=== PATIENT | male | born 1950 | race Hispanic/Latino ===

== ENCOUNTER 2022-04-24 23:30 | Inpatient (IN) | payer MEDICARE, MEDICAID ==
[2022-04-25 00:20] LABS: #Eosinphils 0.3 thou/uL (0.0-0.7); #Lymphocytes 3.3 thou/uL (1.20-3.40); #Monocytes 1.1 thou/uL (0.11-0.59); #Neutrophils 9.8 thou/uL (1.40-6.50); %Basophils 0.3 % (0.0-1.0); %Eosinophils 1.9 % (0.0-10.0); %Lymphocytes 22.8 % (21.0-51.0); %Monocytes 7.3 % (0.0-10.0); %Neutrophils 67.7 % (42.0-75.0); Hemoglobin 10.5 g/dL (14.0-18.0); Mean Corpuscular HGB CONC 32.8 g/dL (32.0-36.0); Mean Corpuscular Hemoglobin 33.1 pg (27.0-31.0); Mean Platelet Volume 7.2 fL (7.4-10.4); Platelet Count 412 10x3/uL (130-400); RBC Distribution Width 12.3 % (11.5-14.5); Red Blood Cell (RBC) Count 3.17 mill/uL (4.70-6.10); White Blood Cell (WBC) Count 14.4 10x3/uL (4.8-10.8)
[2022-04-25] MEDS ORDERED: Pantoprazole 40 MG VIAL ONE (00:34)
[2022-04-25 00:43] LABS: ALT (SGPT) 13 U/L (8-55); AST (SGOT) 9 U/L (5-34); Albumin 3.1 g/dL (3.4-4.8); Alkaline Phosphatase 69 U/L (40-110); Anion Gap 14 mmol/L (10-20); BUN (Urea Nitrogen) 37 mg/dL (8.4-25.7); Bilirubin, Total 0.3 mg/dL (0.2-1.2); Calc. Creatinine Clearance 0 mL/min (70-130); Calcium 8.2 mg/dL (7.8-10.44); Carbon Dioxide 24 mmol/L (23-31); Chloride 104 mmol/L (98-107); Estimated GFR 89; Globulin 2.4 g/dL (2.4-3.5); Glucose 148 mg/dL (83-110); INR-International Normal Ratio 1.1; Lipase 24 U/L (8-78); Potassium 3.1 mmol/L (3.5-5.1); Protein, Total 5.5 g/dL (5.8-8.1); Prothrombin Time 14.6 sec (12.0-14.7); Sodium 139 mmol/L (136-145)
[2022-04-25 00:44] LABS: PTT 25.8 sec (22.9-36.1)
[2022-04-25] MEDS ORDERED: Promethazine HCl 25 MG in Sodium Chloride 0.9% 50 ML IVPB SCH (00:45)
[2022-04-25] MEDS ORDERED: Calcium Carbonate 500 MG ChewTAB PO PRN (02:21)
[2022-04-25] MEDS ORDERED: Senokot S 8.6-50 MG TAB PO PRN (02:21)
[2022-04-25] MEDS ORDERED: Lactated Ringer's 1,000 ML IV SCH (02:30)
[2022-04-25 04:16] LABS: SARS-CoV-2 NAA Rapid Test Not Detected (NotDetected)
[2022-04-25 05:02] LABS: #Lymphocytes 1.6 thou/uL (1.20-3.40); #Monocytes 0.8 thou/uL (0.11-0.59); %Basophils 0.2 % (0.0-1.0); %Eosinophils 0.1 % (0.0-10.0); %Lymphocytes 9.8 % (21.0-51.0); Hemoglobin 10.4 g/dL (14.0-18.0); Mean Corpuscular HGB CONC 32.6 g/dL (32.0-36.0); Mean Corpuscular Hemoglobin 32.6 pg (27.0-31.0); Mean Platelet Volume 7.1 fL (7.4-10.4); Platelet Count 401 10x3/uL (130-400); RBC Distribution Width 12.3 % (11.5-14.5); Red Blood Cell (RBC) Count 3.18 mill/uL (4.70-6.10); White Blood Cell (WBC) Count 16.4 10x3/uL (4.8-10.8)
[2022-04-25 05:14] LABS: Lactic Acid 0.8 mmol/L (0.5-2.2)
[2022-04-25 05:37] LABS: ALT (SGPT) 12 U/L (8-55); AST (SGOT) 10 U/L (5-34); Albumin 3.3 g/dL (3.4-4.8); Alkaline Phosphatase 75 U/L (40-110); Anion Gap 11 mmol/L (10-20); BUN (Urea Nitrogen) 38 mg/dL (8.4-25.7); Bilirubin, Total 0.3 mg/dL (0.2-1.2); Calc. Creatinine Clearance 0 mL/min (70-130); Calcium 8.1 mg/dL (7.8-10.44); Carbon Dioxide 26 mmol/L (23-31); Chloride 106 mmol/L (98-107); Estimated GFR 94; Globulin 2.4 g/dL (2.4-3.5); Glucose 126 mg/dL (83-110); Potassium 3.7 mmol/L (3.5-5.1); Protein, Total 5.7 g/dL (5.8-8.1); Sodium 139 mmol/L (136-145)
[2022-04-25] MEDS: Nicotine 21 MG PATCH TD SCH (05:54)
[2022-04-25 06:45] VITALS: BMI 35.7
[2022-04-25] MEDS ORDERED: Pantoprazole 40 MG VIAL IVP SCH (09:00)
[2022-04-25] MEDS ORDERED: Iopamidol-370 76% 500 ML 1 ML ONE (12:23)
[2022-04-25] MEDS: Acetaminophen 325 MG TAB PO PRN (15:17)
[2022-04-25] MEDS ORDERED: Ipratropium/Albuterol 3 ML NEB NEB PRN (16:24)
[2022-04-25] MEDS: Budesonide 0.25 MG/2 ML NEB INH SCH (18:53)
[2022-04-25] MEDS: Pantoprazole 40 MG VIAL IVP SCH (21:49)
[2022-04-26 04:29] LABS: #Eosinphils 0.2 thou/uL (0.0-0.7); #Lymphocytes 2.6 thou/uL (1.20-3.40); #Monocytes 0.9 thou/uL (0.11-0.59); #Neutrophils 9.9 thou/uL (1.40-6.50); %Basophils 0.3 % (0.0-1.0); %Eosinophils 1.3 % (0.0-10.0); %Lymphocytes 18.7 % (21.0-51.0); %Monocytes 6.9 % (0.0-10.0); %Neutrophils 72.8 % (42.0-75.0); Hemoglobin 8.7 g/dL (14.0-18.0); Mean Corpuscular HGB CONC 32.5 g/dL (32.0-36.0); Mean Platelet Volume 7.3 fL (7.4-10.4); Platelet Count 326 10x3/uL (130-400); RBC Distribution Width 12.4 % (11.5-14.5); Red Blood Cell (RBC) Count 2.65 mill/uL (4.70-6.10); White Blood Cell (WBC) Count 13.6 10x3/uL (4.8-10.8)
[2022-04-26 04:44] LABS: Anion Gap 10 mmol/L (10-20); BUN (Urea Nitrogen) 24 mg/dL (8.4-25.7); Calc. Creatinine Clearance 120 mL/min (70-130); Calcium 8.2 mg/dL (7.8-10.44); Carbon Dioxide 26 mmol/L (23-31); Chloride 106 mmol/L (98-107); Estimated GFR 94; Glucose 96 mg/dL (83-110); Potassium 3.5 mmol/L (3.5-5.1); Sodium 138 mmol/L (136-145)
[2022-04-26] MEDS: Nicotine 21 MG PATCH TD SCH (06:03)
[2022-04-26] MEDS ORDERED: Ipratropium/Albuterol 3 ML NEB ONE (07:54)
[2022-04-26] MEDS: Budesonide 0.25 MG/2 ML NEB INH SCH ×2 (07:57→19:46)
[2022-04-26] MEDS ORDERED: Lidocaine 1% PF 5 ML VIAL ONE (08:18)
[2022-04-26] MEDS ORDERED: PROPOFOL 200 MG/20 ML VIAL ONE (08:18)
[2022-04-26] MEDS ORDERED: Promethazine HCl 25 MG/ML VIAL IM PRN (09:01)
[2022-04-26] MEDS ORDERED: Ondansetron HCl/PF 4 MG/2 ML Vial IVP PRN (09:01)
[2022-04-26] MEDS: Pantoprazole 40 MG VIAL IVP SCH ×2 (09:20→20:58)
[2022-04-26] MEDS: Acetaminophen 325 MG TAB PO PRN (09:29)
[2022-04-26] MEDS ORDERED: Melatonin 3 MG TAB PO PRN (21:28)
[2022-04-27 05:56] LABS: #Eosinphils 0.1 thou/uL (0.0-0.7); #Lymphocytes 1.2 thou/uL (1.20-3.40); #Monocytes 0.9 thou/uL (0.11-0.59); #Neutrophils 12.8 thou/uL (1.40-6.50); %Basophils 0.2 % (0.0-1.0); %Eosinophils 0.6 % (0.0-10.0); %Lymphocytes 7.9 % (21.0-51.0); %Monocytes 6.2 % (0.0-10.0); Hemoglobin 8.4 g/dL (14.0-18.0); Mean Corpuscular Hemoglobin 32.5 pg (27.0-31.0); Mean Platelet Volume 7.4 fL (7.4-10.4); Platelet Count 316 10x3/uL (130-400); RBC Distribution Width 12.4 % (11.5-14.5); Red Blood Cell (RBC) Count 2.58 mill/uL (4.70-6.10); White Blood Cell (WBC) Count 15.1 10x3/uL (4.8-10.8)
[2022-04-27 06:10] LABS: Anion Gap 11 mmol/L (10-20); BUN (Urea Nitrogen) 15 mg/dL (8.4-25.7); Calc. Creatinine Clearance 131 mL/min (70-130); Calcium 8.2 mg/dL (7.8-10.44); Carbon Dioxide 26 mmol/L (23-31); Chloride 103 mmol/L (98-107); Estimated GFR 96; Glucose 129 mg/dL (83-110); Potassium 3.8 mmol/L (3.5-5.1); Sodium 136 mmol/L (136-145)
[2022-04-27] MEDS: Nicotine 21 MG PATCH TD SCH (06:14)
[2022-04-27] MEDS: Budesonide 0.25 MG/2 ML NEB INH SCH (07:01)
[2022-04-27] MEDS: Pantoprazole 40 MG VIAL IVP SCH (09:35)
[2022-04-27 12:39] VITALS: TEMP 98.3
== END 2022-04-27 15:35 | disposition home or self-care (01) | DRG 378 ==
LOC: ERS 23:30 → EDBD 23:30 → IMCU/EMU 04-25 05:26
PROVIDERS: ADMIT Student in an Organized Health Care Education/Training Program; ATTEND Internal Medicine
PROC: 0W3P8ZZ Control Bleeding in Gastrointestinal Tract, Via Natural or Artificial Opening Endoscopic (ICD-10-PCS; principal; 2022-04-26)
PROC: 0DB68ZX Excision of Stomach, Via Natural or Artificial Opening Endoscopic, Diagnostic (ICD-10-PCS; 2022-04-26)
DX: K25.4 Chronic or unspecified gastric ulcer with hemorrhage (principal); D62 Acute posthemorrhagic anemia; Z20.822 Contact with and (suspected) exposure to COVID-19; J44.9 Chronic obstructive pulmonary disease, unspecified; I10 Essential (primary) hypertension; F17.210 Nicotine dependence, cigarettes, uncomplicated; Z90.49 Acquired absence of other specified parts of digestive tract; Z82.49 Family history of ischemic heart disease and other diseases of the circulatory system; T39.315A Adverse effect of propionic acid derivatives, initial encounter; K21.9 Gastro-esophageal reflux disease without esophagitis
CPT/HCPCS: 36415; 71045; 74177; 80048; 80053; 83605; 83690; 85025; 85610; 85730; 86850; 86900; 86901; 88305; 88342; 93005; 94640; 96361; 96374; 96376; C9113; J2550; J2704; J7120; J7620; J7626; Q9967; U0002

== ENCOUNTER 2023-02-27 11:44 | Observation (INO) | payer MEDICARE, MEDICAID ==
[2023-02-27] MEDS ORDERED: methylPREDNISolone Sod Succ/PF 125 MG/2 ML VIAL ONE (12:01)
[2023-02-27 12:11] LABS: #Eosinphils 0.1 thou/uL (0.0-0.7); #Monocytes 0.6 thou/uL (0.11-0.59); #Neutrophils 7.9 thou/uL (1.40-6.50); %Basophils 0.2 % (0.0-1.0); %Eosinophils 0.8 % (0.0-10.0); %Lymphocytes 12.7 % (21.0-51.0); %Neutrophils 79.9 % (42.0-75.0); Hematocrit 29.9 % (42.0-52.0); Hemoglobin 9.4 g/dL (14.0-18.0); Mean Corpuscular HGB CONC 31.4 g/dL (32.0-36.0); Mean Corpuscular Hemoglobin 29.7 pg (27.0-31.0); Mean Corpuscular Volume 94.3 fl (78.0-98.0); Platelet Count 368 10x3/uL (130-400); RBC Distribution Width 15.1 % (11.5-14.5); Red Blood Cell (RBC) Count 3.17 mill/uL (4.70-6.10); White Blood Cell (WBC) Count 9.9 10x3/uL (4.8-10.8)
[2023-02-27] MEDS ORDERED: Ipratropium/Albuterol 3 ML NEB ONE (12:13)
[2023-02-27 12:41] LABS: ALT (SGPT) 19 U/L (8-55); AST (SGOT) 19 U/L (5-34); Albumin 3.2 g/dL (3.4-4.8); Alkaline Phosphatase 101 U/L (40-110); Anion Gap 14 mmol/L (10-20); BUN (Urea Nitrogen) 15 mg/dL (8.4-25.7); Bilirubin, Total 0.2 mg/dL (0.2-1.2); Calc. Creatinine Clearance 0 mL/min (70-130); Calcium 7.8 mg/dL (7.8-10.44); Carbon Dioxide 27 mmol/L (23-31); Chloride 99 mmol/L (98-107); Estimated GFR 67; Globulin 3.2 g/dL (2.4-3.5); Glucose 147 mg/dL (83-110); Potassium 4.5 mmol/L (3.5-5.1); Protein, Total 6.4 g/dL (5.8-8.1); Sodium 135 mmol/L (136-145)
[2023-02-27 12:46] LABS: Troponin I 0.248 ng/mL (< 0.028)
[2023-02-27 13:12] LABS: SARS-CoV-2 NAA Rapid Test Not Detected (NotDetected)
[2023-02-27] MEDS ORDERED: Aspirin Chewable 81 MG TAB ONE (14:10)
[2023-02-27] MEDS ORDERED: Oseltamivir 75 MG CAP ONE (14:36)
[2023-02-27] MEDS ORDERED: Acetaminophen 325 MG TAB PO PRN (14:59)
[2023-02-27] MEDS ORDERED: Ondansetron PF 4 MG/2 ML Vial IVP PRN (14:59)
[2023-02-27] MEDS ORDERED: Albuterol 2.5 MG (3 mL) NEB NEB PRN (15:02)
[2023-02-27 15:42] LABS: Troponin I 0.268 ng/mL (< 0.028)
[2023-02-27 17:29] VITALS: BMI 34.4
[2023-02-27] MEDS ORDERED: Nicotine 21 MG PATCH TD SCH (18:00)
[2023-02-27 18:57] LABS: Troponin I 0.207 ng/mL (< 0.028)
[2023-02-27] MEDS ORDERED: methylPREDNISolone Sod Succ 40 MG VIAL ONE (19:16)
[2023-02-27] MEDS: methylPREDNISolone Sod Succ 40 MG VIAL IVP SCH ×2 (19:22→22:29)
[2023-02-27] MEDS: Ipratropium/Albuterol 3 ML NEB NEB SCH ×2 (22:26→23:03)
[2023-02-27] MEDS: Oseltamivir 75 MG CAP PO SCH (22:29)
[2023-02-28] MEDS: Ipratropium/Albuterol 3 ML NEB NEB SCH ×4 (03:37→14:40)
[2023-02-28] MEDS: methylPREDNISolone Sod Succ 40 MG VIAL IVP SCH ×2 (05:08→14:16)
[2023-02-28 06:18] LABS: #Monocytes 0.3 thou/uL (0.11-0.59); #Neutrophils 6.1 thou/uL (1.40-6.50); %Lymphocytes 8.8 % (21.0-51.0); %Monocytes 4.8 % (0.0-10.0); %Neutrophils 86.1 % (42.0-75.0); Hematocrit 30.8 % (42.0-52.0); Hemoglobin 9.6 g/dL (14.0-18.0); Mean Corpuscular HGB CONC 31.2 g/dL (32.0-36.0); Mean Corpuscular Hemoglobin 28.9 pg (27.0-31.0); Mean Corpuscular Volume 92.8 fl (78.0-98.0); Mean Platelet Volume 9.4 fL (7.4-10.4); Platelet Count 388 10x3/uL (130-400); Red Blood Cell (RBC) Count 3.32 mill/uL (4.70-6.10)
[2023-02-28 06:58] LABS: Anion Gap 13 mmol/L (10-20); BUN (Urea Nitrogen) 15 mg/dL (8.4-25.7); Calc. Creatinine Clearance 89 mL/min (70-130); Calcium 8.3 mg/dL (7.8-10.44); Carbon Dioxide 26 mmol/L (23-31); Chloride 100 mmol/L (98-107); Estimated GFR 72; Glucose 187 mg/dL (83-110); Potassium 4.1 mmol/L (3.5-5.1); Sodium 135 mmol/L (136-145)
[2023-02-28] MEDS ORDERED: Amlodipine 5 MG TAB PO SCH (09:00)
[2023-02-28] MEDS: Oseltamivir 75 MG CAP PO SCH (10:42)
[2023-02-28 12:01] VITALS: BP 112/53; TEMP 97.5
== END 2023-02-28 14:40 | disposition home or self-care (01) ==
LOC: ERS 11:44 → ERHOLD 14:32 → 2SW 20:14
PROVIDERS: ADMIT Hospitalist; ATTEND Physician Assistant Medical
DX: J44.9 Chronic obstructive pulmonary disease, unspecified (principal); J10.1 Influenza due to other identified influenza virus with other respiratory manifestations; I10 Essential (primary) hypertension; I25.10 Atherosclerotic heart disease of native coronary artery without angina pectoris; F17.210 Nicotine dependence, cigarettes, uncomplicated; E66.9 Obesity, unspecified; Z95.5 Presence of coronary angioplasty implant and graft; Z79.51 Long term (current) use of inhaled steroids; Z90.49 Acquired absence of other specified parts of digestive tract; Z68.32 Body mass index [BMI] 32.0-32.9, adult; Z20.822 Contact with and (suspected) exposure to COVID-19; Z79.899 Other long term (current) drug therapy
CPT/HCPCS: 0240U; 71045; 80048; 80053; 83880; 84484 ×2; 85025 ×2; 93005; 94640 ×2; 96374; 96376 ×3; 99285; G0378 ×3; 36415; J2920; J2930; J7620

== ENCOUNTER 2023-04-02 14:57 | Outpatient (CLI) | payer MEDICARE, MEDICAID | END 2023-04-02 14:58 | disposition home or self-care (01) | LOC: CT 14:57 | PROVIDERS: ATTEND Internal Medicine Cardiovascular Disease | DX: I25.10 Atherosclerotic heart disease of native coronary artery without angina pectoris (principal); I73.9 Peripheral vascular disease, unspecified; I77.1 Stricture of artery; N13.30 Unspecified hydronephrosis; K40.90 Unilateral inguinal hernia, without obstruction or gangrene, not specified as recurrent | CPT/HCPCS: 75635; 82565 ==

== ENCOUNTER 2023-08-12 05:47 | Emergency (ER) | payer MEDICARE, MEDICAID ==
[2023-08-12] MEDS ORDERED: Ipratropium/Albuterol 3 ML NEB ONE (06:49)
== END 2023-08-12 07:12 | disposition home or self-care (01) ==
LOC: ERS 05:47
DX: J44.1 Chronic obstructive pulmonary disease with (acute) exacerbation (principal); I10 Essential (primary) hypertension; F17.210 Nicotine dependence, cigarettes, uncomplicated
CPT/HCPCS: J7620

== ENCOUNTER 2023-09-05 15:25 | Inpatient (IN) | payer MEDICARE, MEDICAID ==
[2023-09-05 16:40] LABS: #Basophils 0.04 10x3/uL (0.0-0.2); %Basophils 0.5 % (0.0-1.0); %Eosinophils 2.4 % (0.0-10.0); %Lymphocytes 19.1 % (21.0-51.0); %Monocytes 11.9 % (0.0-10.0); %Neutrophils 65.8 % (42.0-75.0); Hemoglobin 9.1 g/dL (14.0-18.0); Mean Corpuscular HGB CONC 27.6 g/dL (32.0-36.0); Mean Corpuscular Hemoglobin 21.9 pg (27.0-31.0); Mean Corpuscular Volume 79.5 fL (78.0-98.0); Mean Platelet Volume 9.1 fL (7.4-10.4); Platelet Count 363 10x3/uL (130-400); RBC Distribution Width 17.9 % (11.5-14.5); Red Blood Cell (RBC) Count 4.15 mill/uL (4.70-6.10)
[2023-09-05 16:44] LABS: Lipase 36 U/L (8-78)
[2023-09-05 16:57] LABS: Anisocytosis SLIGHT = 6-15 cells HPF (0-5); Basophilic Stippling SLIGHT = 1-2 cells HPF (None Seen); Burr Cells SLIGHT = 2-5 cells HPF (0-1); Hypochromia SLIGHT = 6-15 cells HPF (0-5); Microcytosis SLIGHT = 6-15 cells HPF (0-5); Ovalocytes SLIGHT = 2-5 cells HPF (0-1); Platelet Adequacy Comment Platelets Normal; Polychromasia SLIGHT = 2-3 cells HPF (0-2); Target Cells MODERATE= 6-15 cells HPF (0-1)
[2023-09-05 17:00] LABS: Actual Bicarbonate (HCO3a) 30.3 mEq/L (22-28); CO2 Tension 62.4 mmHg (35.0-45.0); O2 Tension (PaO2), arterial 59.7 mmHg (> 70.0); pH, Arterial 7.304 (7.35-7.45)
[2023-09-05 17:01] LABS: Carboxyhemoglobin (COHb) 1.9 gm% (0.0-3.0); Hematocrit-ABG 29 % (42.0-52.0); Hemoglobin (Hb) 9.7 g/dL (14.0-18.0); Potassium - ABG Lab 4.11 mmol/L (3.70-5.30)
[2023-09-05 17:02] LABS: Analyzer IN Cardio ER; Calcium, Ionized (arterial) 1.14 mmol/L (1.12-1.30); Puncture Site RRA
[2023-09-05 17:25] LABS: Troponin I 0.019 ng/mL (< 0.028)
[2023-09-05 17:51] LABS: ALT (SGPT) 20 U/L (8-55); AST (SGOT) 17 U/L (5-34); Albumin 3.2 g/dL (3.4-4.8); Alkaline Phosphatase 141 U/L (40-110); Anion Gap 12 mmol/L (10-20); BUN (Urea Nitrogen) 19 mg/dL (8.4-25.7); Bilirubin, Total 0.3 mg/dL (0.2-1.2); Calc. Creatinine Clearance 0 mL/min (70-130); Calcium 8.3 mg/dL (7.8-10.44); Carbon Dioxide 29 mmol/L (23-31); Chloride 105 mmol/L (98-107); Estimated GFR 92; Globulin 3.3 g/dL (2.4-3.5); Glucose 104 mg/dL (83-110); Potassium 3.9 mmol/L (3.5-5.1); Protein, Total 6.5 g/dL (5.8-8.1); Sodium 142 mmol/L (136-145)
[2023-09-05] MEDS ORDERED: Ondansetron PF 4 MG/2 ML Vial IVP PRN (19:25)
[2023-09-05] MEDS ORDERED: Albuterol 2.5 MG (3 mL) NEB NEB PRN (19:29)
[2023-09-05 21:05] VITALS: BMI 40.6
[2023-09-05] MEDS: Pantoprazole DR 40 MG TAB PO SCH (22:11)
[2023-09-05] MEDS: Heparin 5,000 UNITS/ML VIAL SC SCH (22:12)
[2023-09-05] MEDS: methylPREDNISolone Sod Succ 40 MG VIAL IVP SCH (22:12)
[2023-09-05] MEDS: Doxycycline 100 MG in Sodium Chloride 0.9% 100 ML IVPB SCH (22:12)
[2023-09-05] MEDS: Ipratropium/Albuterol 3 ML NEB NEB SCH (22:38)
[2023-09-06] MEDS ORDERED: Ipratropium/Albuterol 3 ML NEB ONE (02:54)
[2023-09-06 04:22] LABS: #Basophils Less than 0.03 10x3/uL (0.0-0.2); #Eosinphils Less than 0.03 10x3/uL (0.0-0.7); %Basophils 0.2 % (0.0-1.0); %Lymphocytes 8.8 % (21.0-51.0); %Monocytes 1.9 % (0.0-10.0); %Neutrophils 88.6 % (42.0-75.0); Hematocrit 33.5 % (42.0-52.0); Mean Corpuscular HGB CONC 26.9 g/dL (32.0-36.0); Mean Corpuscular Hemoglobin 21.3 pg (27.0-31.0); Mean Corpuscular Volume 79.2 fL (78.0-98.0); Mean Platelet Volume 9.4 fL (7.4-10.4); Platelet Count 374 10x3/uL (130-400); RBC Distribution Width 17.9 % (11.5-14.5); Red Blood Cell (RBC) Count 4.23 mill/uL (4.70-6.10)
[2023-09-06 04:40] LABS: Anion Gap 12 mmol/L (10-20); BUN (Urea Nitrogen) 17 mg/dL (8.4-25.7); Calc. Creatinine Clearance 125 mL/min (70-130); Calcium 8.4 mg/dL (7.8-10.44); Carbon Dioxide 29 mmol/L (23-31); Chloride 105 mmol/L (98-107); Estimated GFR 91; Glucose 277 mg/dL (83-110); Potassium 4.5 mmol/L (3.5-5.1); Sodium 141 mmol/L (136-145)
[2023-09-06] MEDS: Amlodipine 5 MG TAB PO SCH (10:12)
[2023-09-06] MEDS: Carvedilol 6.25 MG TAB PO SCH (10:12)
[2023-09-06] MEDS: Atorvastatin Calcium 40 MG TAB PO SCH (10:12)
[2023-09-06] MEDS: Clopidogrel Bisulfate 75 MG TAB PO SCH (10:12)
[2023-09-06] MEDS: Lisinopril 20 MG TAB PO SCH (10:13)
[2023-09-06] MEDS: Acetaminophen 325 MG TAB PO PRN (15:17)
[2023-09-06 15:48] VITALS: BP 131/60; TEMP 98.4
== END 2023-09-06 17:27 | disposition home or self-care (01) | DRG 189 ==
LOC: ERS 15:25 → 2NO 18:38
PROVIDERS: ADMIT Hospitalist; ATTEND Internal Medicine
PROC: 4A033R1 Measurement of Arterial Saturation, Peripheral, Percutaneous Approach (ICD-10-PCS; principal; 2023-09-05)
DX: J96.01 Acute respiratory failure with hypoxia (principal); J44.1 Chronic obstructive pulmonary disease with (acute) exacerbation; Z68.41 Body mass index [BMI] 40.0-44.9, adult; E87.29 Other acidosis; I10 Essential (primary) hypertension; I25.10 Atherosclerotic heart disease of native coronary artery without angina pectoris; E66.01 Morbid (severe) obesity due to excess calories; I73.9 Peripheral vascular disease, unspecified; Z87.891 Personal history of nicotine dependence; Z79.899 Other long term (current) drug therapy; Z90.49 Acquired absence of other specified parts of digestive tract; Z71.3 Dietary counseling and surveillance
CPT/HCPCS: 36415; 36600; 71045; 80048; 80053; 82805; 83605; 83690; 83735; 83880; 84484; 85025; 87040; 93005; 94640; 96365; 96366; 96375; J1644; J2920; J3490; J7620

== ENCOUNTER 2023-09-27 07:38 | Emergency (ER) | payer MEDICARE, OTHER ==
[2023-09-27] MEDS ORDERED: HYDROcodone/Acetaminophen 5/325 mg Tablet ONE ×2 (07:57→08:06)
[2023-09-27] MEDS ORDERED: Boostrix 0.5 ML (Tdap) VIAL (>/=7 yrs of age) ONE (08:14)
== END 2023-09-27 09:00 | disposition home or self-care (01) ==
LOC: ERS 07:38
DX: S91.331A Puncture wound without foreign body, right foot, initial encounter (principal); I10 Essential (primary) hypertension; J44.9 Chronic obstructive pulmonary disease, unspecified; I25.2 Old myocardial infarction; I25.10 Atherosclerotic heart disease of native coronary artery without angina pectoris; F17.210 Nicotine dependence, cigarettes, uncomplicated; W45.0XXA Nail entering through skin, initial encounter; Z23 Encounter for immunization
CPT/HCPCS: 90471; 90715

== ENCOUNTER 2024-03-01 03:25 | Emergency (ER) | payer MEDICARE, MEDICAID ==
[2024-03-01] MEDS ORDERED: Doxycycline 100 MG CAP ONE (04:44)
[2024-03-01] MEDS ORDERED: Ketorolac Tromethamine 30 MG (1 mL) VIAL ONE (04:44)
== END 2024-03-01 05:00 | disposition home or self-care (01) ==
LOC: ERS 03:25
DX: L03.116 Cellulitis of left lower limb (principal); I10 Essential (primary) hypertension; F17.210 Nicotine dependence, cigarettes, uncomplicated; Z55.6 Problems related to health literacy
CPT/HCPCS: 96372; 99283; J1885

== ENCOUNTER 2025-01-06 11:04 | Inpatient (IN) | payer OTHER ==
[2025-01-06 11:41] LABS: #Basophils 0.05 10x3/uL (0.0-0.2); #Eosinophils 0.27 10x3/uL (0.0-0.7); #Monocytes 1.22 10x3/uL (0.11-0.59); #Neutrophils 7.87 10x3/uL (1.40-6.50); %Basophils 0.4 % (0.0-1.0); %Eosinophils 2.4 % (0.0-10.0); %Lymphocytes 15.6 % (21.0-51.0); %Monocytes 10.9 % (0.0-10.0); %Neutrophils 70.3 % (42.0-75.0); Hematocrit 36.2 % (42.0-52.0); Hemoglobin 9.3 g/dL (14.0-18.0); Mean Corpuscular Hemoglobin 20.9 pg (27.0-31.0); Mean Corpuscular Volume 81.3 fL (78.0-98.0); Platelet Count 341 10x3/uL (130-400); Red Blood Cell (RBC) Count 4.45 mill/uL (4.70-6.10); White Blood Cell (WBC) Count 11.20 10x3/uL (4.8-10.8)
[2025-01-06] MEDS ORDERED: Iopamidol-370 76% 500 ML MDV (1 ML CHARGE) ONE (11:54)
[2025-01-06 11:55] LABS: ALT (SGPT) 15 U/L (Less than 45); AST (SGOT) 20 U/L (11-34); Albumin 3.3 g/dL (3.1-4.5); Alkaline Phosphatase 101 U/L (40-110); Anion Gap 11 mmol/L (10-20); BUN (Urea Nitrogen) 14 mg/dL (8.4-25.7); Bilirubin, Total 0.4 mg/dL (0.3-1.2); Calc. Creatinine Clearance 0 mL/min (70-130); Calcium 8.5 mg/dL (7.8-10.44); Carbon Dioxide 30 mmol/L (23-31); Chloride 105 mmol/L (98-107); Globulin 3.1 g/dL (2.4-3.5); Glucose 129 mg/dL (83-110); Lipase 26 U/L (8-78); Potassium 4.4 mmol/L (3.5-5.1); Sodium 142 mmol/L (136-145)
[2025-01-06 12:12] LABS: Anisocytosis SLIGHT = 6-15 cells HPF (0-5); Macrocytosis SLIGHT = 6-15 cells HPF (0-5); Ovalocytes SLIGHT = 2-5 cells HPF (0-1); Platelet Adequacy Comment Platelets Normal; Polychromasia SLIGHT = 2-3 cells HPF (0-2); Schistocytes SLIGHT = 2-5 cells HPF (0-1); Target Cells SLIGHT = 2-5 cells HPF (0-1)
[2025-01-06] MEDS ORDERED: Acetaminophen 325 MG TAB ONE (12:57)
[2025-01-06] MEDS ORDERED: Furosemide 40 MG (4 mL) VIAL ONE (15:19)
[2025-01-06] MEDS ORDERED: Senokot S 8.6-50 MG TAB PO PRN (15:23)
[2025-01-06] MEDS ORDERED: Melatonin 3 MG TAB PO PRN (15:23)
[2025-01-06] MEDS ORDERED: Calcium Carbonate 500 MG ChewTAB PO PRN (15:23)
[2025-01-06] MEDS ORDERED: Acetaminophen/Codeine 30-300mg Tablet PO PRN (15:23)
[2025-01-06] MEDS ORDERED: Guaifenesin DM 100-10/5 ML UDCUP PO PRN (15:23)
[2025-01-06] MEDS ORDERED: Electrolyte Replacement Protocol 1 EACH FS SCH (15:30)
[2025-01-06] MEDS ORDERED: PHOS-NAK 1 PKT PACK PO PRN (15:45)
[2025-01-06] MEDS ORDERED: Magnesium 2 GM/50 ML(in water) 2 GM in Premix 1 BAG IVPB PRN (15:45)
[2025-01-06] MEDS ORDERED: Potassium Chloride 20 MEQ in Premix 1 BAG IVPB PRN (15:45)
[2025-01-06] MEDS: cefTRIAXone\\ROCEPHIN 1 GM in Sodium Chloride 0.9% 100 ML IVPB SCH (17:33)
[2025-01-06] MEDS: Vancomycin 1 GM in Premix 1 BAG IVPB SCH (18:29)
[2025-01-06] MEDS ORDERED: Albuterol 200 PUFF INH INH PRN (18:30)
[2025-01-06] MEDS: Mometasone 100 MCG/Formoterol 5 MCG 120 PUFF INHALER INH SCH (19:02)
[2025-01-06] MEDS: Vancomycin (BATCH) 2.5 GM in Premix 1 BAG IVPB SCH (21:59)
[2025-01-07 05:08] LABS: #Basophils 0.03 10x3/uL (0.0-0.2); #Eosinophils Less than 0.03 10x3/uL (0.0-0.7); #Monocytes 0.22 10x3/uL (0.11-0.59); #Neutrophils 10.12 10x3/uL (1.40-6.50); %Basophils 0.3 % (0.0-1.0); %Eosinophils 0.0 % (0.0-10.0); %Lymphocytes 4.7 % (21.0-51.0); %Monocytes 2.0 % (0.0-10.0); %Neutrophils 92.5 % (42.0-75.0); Hematocrit 37.1 % (42.0-52.0); Hemoglobin 9.8 g/dL (14.0-18.0); Mean Corpuscular Hemoglobin 21.4 pg (27.0-31.0); Mean Corpuscular Volume 80.8 fL (78.0-98.0); Platelet Count 329 10x3/uL (130-400); Red Blood Cell (RBC) Count 4.59 mill/uL (4.70-6.10); White Blood Cell (WBC) Count 10.95 10x3/uL (4.8-10.8)
[2025-01-07 05:17] LABS: Vancomycin, Random 16.7 ug/mL (See Comment)
[2025-01-07 05:22] LABS: ALT (SGPT) 16 U/L (Less than 45); AST (SGOT) 9 U/L (11-34); Albumin 3.5 g/dL (3.1-4.5); Alkaline Phosphatase 100 U/L (40-110); Anion Gap 14 mmol/L (10-20); BUN (Urea Nitrogen) 14 mg/dL (8.4-25.7); Bilirubin, Total 0.4 mg/dL (0.3-1.2); Calc. Creatinine Clearance 131 mL/min (70-130); Calcium 8.6 mg/dL (7.8-10.44); Carbon Dioxide 33 mmol/L (23-31); Chloride 101 mmol/L (98-107); Globulin 3.1 g/dL (2.4-3.5); Glucose 174 mg/dL (83-110); Potassium 4.6 mmol/L (3.5-5.1); Sodium 143 mmol/L (136-145)
[2025-01-07] MEDS: Vancomycin 1.25 GM / NS 250 ML VIAL-2-BAG IVPB SCH (06:12)
[2025-01-07] MEDS: Carvedilol 6.25 MG TAB PO SCH (08:49)
[2025-01-07] MEDS: Lisinopril 20 MG TAB PO SCH (08:50)
[2025-01-07] MEDS: Pantoprazole 40 MG DR.TAB PO SCH (08:50)
[2025-01-07] MEDS: Aspirin Chewable 81 MG TAB PO SCH (08:50)
[2025-01-07] MEDS: Furosemide 40 MG TAB PO SCH (08:51)
[2025-01-07] MEDS ORDERED: Vancomycin 1.25 GM / NS 250 ML VIAL-2-BAG IVPB SCH ×2 (10:00→18:00)
[2025-01-07 15:25] LABS: Actual Bicarbonate (HCO3a) 32.6 mEq/L (22-28); Base Excess (BEa) 3.1 mEq/L (-2.0 to +3.0); Calcium, Ionized (arterial) 1.18 mmol/L (1.12-1.30); Hematocrit-ABG 31 % (42.0-52.0); Hemoglobin (Hb) 10.5 g/dL (14.0-18.0); O2 Tension (PaO2), arterial 130.9 mmHg (> 70.0); Potassium - ABG Lab 4.45 mmol/L (3.70-5.30); pH, Arterial 7.220 (7.35-7.45)
[2025-01-07 15:27] LABS: CO2 Tension 81.4 mmHg (35.0-45.0); Puncture Site Right Radial artery
[2025-01-07] MEDS: Furosemide 20 MG (2 mL) VIAL SLOW IVP SCH (16:40)
[2025-01-07] MEDS: Enoxaparin 40 MG (0.4 mL) SYRINGE SC SCH (21:33)
[2025-01-08 05:24] LABS: #Basophils Less than 0.03 10x3/uL (0.0-0.2); #Eosinophils Less than 0.03 10x3/uL (0.0-0.7); #Monocytes 1.69 10x3/uL (0.11-0.59); #Neutrophils 9.26 10x3/uL (1.40-6.50); %Basophils 0.2 % (0.0-1.0); %Eosinophils 0.0 % (0.0-10.0); %Lymphocytes 8.5 % (21.0-51.0); %Monocytes 14.0 % (0.0-10.0); %Neutrophils 76.7 % (42.0-75.0); Hematocrit 37.8 % (42.0-52.0); Hemoglobin 9.3 g/dL (14.0-18.0); Mean Corpuscular Hemoglobin 21.0 pg (27.0-31.0); Mean Corpuscular Volume 85.5 fL (78.0-98.0); Platelet Count 326 10x3/uL (130-400); Red Blood Cell (RBC) Count 4.42 mill/uL (4.70-6.10); White Blood Cell (WBC) Count 12.07 10x3/uL (4.8-10.8)
[2025-01-08 05:39] LABS: Anion Gap 14 mmol/L (10-20); BUN (Urea Nitrogen) 21 mg/dL (8.4-25.7); Calc. Creatinine Clearance 105 mL/min (70-130); Calcium 8.4 mg/dL (7.8-10.44); Carbon Dioxide 34 mmol/L (23-31); Chloride 101 mmol/L (98-107); Glucose 137 mg/dL (83-110); Potassium 4.7 mmol/L (3.5-5.1); Sodium 144 mmol/L (136-145)
[2025-01-08] MEDS: Furosemide 20 MG (2 mL) VIAL SLOW IVP SCH (05:44)
[2025-01-08] MEDS ORDERED: Furosemide 40 MG (4 mL) VIAL SLOW IVP SCH (06:00)
[2025-01-08 06:21] LABS: Actual Bicarbonate (HCO3v) 34.2 mEq/L (22-28); Base Excess 5.2 mEq/L (-2.0 to +3.0); Calcium, Ionized (venous) 1.08 mmol/L (1.16-1.32); Chloride (VBG) 100 mmol/L (98-106); Hematocrit-VBG 32 % (42.0-52.0); Hemoglobin (Hb) 10.8 g/dL (12.6-17.4); Potassium (VBG) 4.61 mmol/L (3.70-5.30); Sodium 141 mmol/L (133-146)
[2025-01-08 12:42] LABS: Actual Bicarbonate (HCO3v) 37.3 mEq/L (22-28); Base Excess 8.5 mEq/L (-2.0 to +3.0); Calcium, Ionized (venous) 1.12 mmol/L (1.16-1.32); Chloride (VBG) 98 mmol/L (98-106); Hematocrit-VBG 30 % (42.0-52.0); Hemoglobin (Hb) 10.2 g/dL (12.6-17.4); Potassium (VBG) 4.46 mmol/L (3.70-5.30); Sodium 141 mmol/L (133-146)
[2025-01-09 08:32] LABS: #Basophils 0.03 10x3/uL (0.0-0.2); #Eosinophils Less than 0.03 10x3/uL (0.0-0.7); #Monocytes 1.34 10x3/uL (0.11-0.59); #Neutrophils 8.19 10x3/uL (1.40-6.50); %Basophils 0.3 % (0.0-1.0); %Eosinophils 0.0 % (0.0-10.0); %Lymphocytes 14.0 % (21.0-51.0); %Monocytes 12.0 % (0.0-10.0); %Neutrophils 73.4 % (42.0-75.0); Hematocrit 34.3 % (42.0-52.0); Hemoglobin 8.9 g/dL (14.0-18.0); Mean Corpuscular Hemoglobin 20.9 pg (27.0-31.0); Mean Corpuscular Volume 80.5 fL (78.0-98.0); Platelet Count 264 10x3/uL (130-400); Red Blood Cell (RBC) Count 4.26 mill/uL (4.70-6.10); White Blood Cell (WBC) Count 11.15 10x3/uL (4.8-10.8)
[2025-01-09 09:02] LABS: Actual Bicarbonate (HCO3v) 36.2 mEq/L (22-28); Base Excess 8.9 mEq/L (-2.0 to +3.0); Calcium, Ionized (venous) 1.05 mmol/L (1.16-1.32); Chloride (VBG) 97 mmol/L (98-106); Hematocrit-VBG 29 % (42.0-52.0); Hemoglobin (Hb) 9.9 g/dL (12.6-17.4); Potassium (VBG) 4.34 mmol/L (3.70-5.30); Sodium 140 mmol/L (133-146)
[2025-01-09 09:44] LABS: Anisocytosis SLIGHT = 6-15 cells HPF (0-5); Macrocytosis SLIGHT = 6-15 cells HPF (0-5); Platelet Adequacy Comment Platelets Normal; Poikilocytosis SLIGHT = 6-15 cells HPF (0-5); Polychromasia MODERATE = 3-4 cells HPF (0-2); Stomatocytes SLIGHT = 2-5 cells HPF (0-1); Target Cells SLIGHT = 2-5 cells HPF (0-1)
[2025-01-09] MEDS: Acetaminophen 325 MG TAB PO PRN (13:09)
[2025-01-09] MEDS: Furosemide 40 MG (4 mL) VIAL SLOW IVP SCH (15:30)
[2025-01-09] MEDS: Carvedilol 6.25 MG TAB PO SCH (22:17)
[2025-01-10 04:26] LABS: ALT (SGPT) 18 U/L (Less than 45); AST (SGOT) 14 U/L (11-34); Albumin 3.1 g/dL (3.1-4.5); Alkaline Phosphatase 103 U/L (40-110); Anion Gap 12 mmol/L (10-20); BUN (Urea Nitrogen) 26 mg/dL (8.4-25.7); Bilirubin, Total 0.3 mg/dL (0.3-1.2); Calc. Creatinine Clearance 128 mL/min (70-130); Calcium 8.4 mg/dL (7.8-10.44); Carbon Dioxide 36 mmol/L (23-31); Cardiac Risk 2.7 (Less than 4.5); Chloride 99 mmol/L (98-107); Cholesterol 97 mg/dl (< 200 Desired); Globulin 2.9 g/dL (2.4-3.5); Glucose 131 mg/dL (83-110); HDL Cholesterol 36 mg/dL (>60 Neg Risk); LDL Cholesterol, Calculated 50 mg/dL; Potassium 3.9 mmol/L (3.5-5.1); Sodium 143 mmol/L (136-145); Triglycerides 55 mg/dL (Less than 150)
[2025-01-10] MEDS: Furosemide 40 MG (4 mL) VIAL SLOW IVP SCH (05:28)
[2025-01-10 06:21] VITALS: BMI 46.3
[2025-01-10] MEDS: predniSONE 20 MG TAB PO SCH (10:10)
[2025-01-10 13:34] VITALS: BP 175/73; TEMP 97.4
== END 2025-01-10 18:00 | disposition home or self-care (01) | DRG 291 ==
LOC: SUATTDRO 11:04 → ERS 11:04 → 2NO 15:28
PROVIDERS: ADMIT Internal Medicine; ATTEND Hospitalist
PROC: 3E03329 Introduction of Other Anti-infective into Peripheral Vein, Percutaneous Approach (ICD-10-PCS; principal; 2025-01-06)
PROC: 4A133R1 Monitoring of Arterial Saturation, Peripheral, Percutaneous Approach (ICD-10-PCS; 2025-01-07)
DX: I11.0 Hypertensive heart disease with heart failure (principal); I50.33 Acute on chronic diastolic (congestive) heart failure; J96.21 Acute and chronic respiratory failure with hypoxia; J96.22 Acute and chronic respiratory failure with hypercapnia; E66.2 Morbid (severe) obesity with alveolar hypoventilation; Z68.42 Body mass index [BMI] 45.0-49.9, adult; J44.1 Chronic obstructive pulmonary disease with (acute) exacerbation; I25.10 Atherosclerotic heart disease of native coronary artery without angina pectoris; I73.9 Peripheral vascular disease, unspecified; F10.90 Alcohol use, unspecified, uncomplicated; F17.210 Nicotine dependence, cigarettes, uncomplicated; Z90.49 Acquired absence of other specified parts of digestive tract; Z95.5 Presence of coronary angioplasty implant and graft; Z82.49 Family history of ischemic heart disease and other diseases of the circulatory system; Z87.11 Personal history of peptic ulcer disease
CPT/HCPCS: 36415; 36416; 36600; 71045; 71275; 74177; 80048; 80053; 80061; 80202; 82805; 83036; 83605; 83690; 83880; 84484; 85025; 93005; 93306; 94640; 94664; 94760; 96374; 96375; J0696; J1650; J1940; J2270; J2919; J3373; J7050; J7512; J7626; Q0169; Q9967